=== PATIENT | male | born 1945 | race Caucasian/White ===

== ENCOUNTER 2023-08-19 19:40 | Emergency (ER) | payer MEDICARE, MEDICAID ==
[~2023-08-19] VITALS: Ht 177.8 cm; Wt 106.1 kg
[2023-08-19 19:50] VITALS: BP_SYST 124; PULSE 103; RESP 16; TEMP 97.9; O2SAT 95
[2023-08-19] MEDS ORDERED: KETO5DRO85 LEFT EYE ×2 (22:39→22:47)
[2023-08-19 23:04] VITALS: BP_SYST 124; PULSE 103; RESP 16; TEMP 97.9; O2SAT 95
== END 2023-08-19 23:04 | disposition home or self-care (01) ==
LOC: SED 19:40
DX: H57.12 Ocular pain, left eye (principal); Z79.899 Other long term (current) drug therapy
CPT/HCPCS: 99283